=== PATIENT | male | born 1985 ===

== ENCOUNTER 2023-05-14 11:39 | Emergency (ER) | payer OTHER ==
[~2023-05-14] VITALS: Ht 170.2 cm; Wt 86.2 kg
[2023-05-14] MEDS ORDERED: IBU400 MG PO (11:44)
[2023-05-14] MEDS ORDERED: ICY HOT1 EAC1 TP (11:44)
[2023-05-14] MEDS ORDERED: METHOCARBAMOL500 MG PO (11:44)
[2023-05-14] MEDS ORDERED: TRAMADOL HCL E100 M1 PO (11:45)
[2023-05-14 13:03] LABS: HEMOGLOBIN 15.4 g/dL (13-16.00); MEAN CELL VOLUME 84.3 fL (80.0-100.00); MEAN CORPUSCULAR HEMOGLOBIN 28.2 pg (27.00-32.0); MEAN CORPUSCULAR HGB CONC 33.4 g/dl (32.0-36.0); PLATELET COUNT 421 K/uL (150-450); RED BLOOD COUNT 5.46 M/uL (4.00-6.00); RED CELL DISTRIBUTION WIDTH 12.5 % (11.5-14.5)
== END 2023-05-14 17:00 | disposition home or self-care (01) ==
LOC: ER 11:39
PROVIDERS: General Practice
DX: M51.27 Other intervertebral disc displacement, lumbosacral region (principal)
CPT/HCPCS: 36415; 72131; 96372; 99284; J1885